=== PATIENT | female | born 1975 | race Caucasian/White ===

== ENCOUNTER → 2017-05-13 | Outpatient (CLI) | payer OTHER ==
[~2017-05-13] MED LIST: CEFD300C3 PO
--- NOTE | 2017-05-13 12:31 | Diagnostic Imaging Report ---
PATIENT HISTORY: COUGH, WHEEZING. TECHNIQUE: Two views of the chest. COMPARISON: None. FINDINGS: The lung volumes are normal. No focal consolidation is seen. No large pleural effusion or pneumothorax is seen. The cardiomediastinal silhouette is normal in size and contour. No acute osseous abnormality is seen. IMPRESSION: No acute pulmonary abnormality seen. Dictated by: Dictated on workstation # [id number]
== END ==
LOC: RAD 11:52
PROVIDERS: ATTEND Nurse Practitioner Family
DX: R05 Cough (principal)
CPT/HCPCS: 71046

== ENCOUNTER → 2020-07-25 | Outpatient (CLI) | payer OTHER ==
--- NOTE | 2020-07-25 13:27 | Diagnostic Imaging Report ---
INDICATION: ABNORMAL THYROID LAB TECHNIQUE: Grayscale sonographic images of the thyroid gland. CORRELATION STUDY: None FINDINGS: RIGHT LOBE: Enlarged at 5.5 x 1.6 x 2.2 cm. There is a rather sizable predominantly solid, iso to slightly hypoechoic mass. Minimal cystic change. There are multiple microcalcifications present. This measures approximately 3.8 x 1.9 x 1.5 cm, occupies a large portion of the right thyroid lobe. Additional smaller heterogeneous nodule superior pole measures 0.9 x 0.7 x 0.5 cm. LEFT LOBE: Mildly enlarged at 5.1 x 1.6 x 2.0 cm. There is a dominant predominantly solid iso to slightly hypoechoic mass in the left lobe. This measures 1.5 x 0.9 x 0.9 cm. May be a few punctate microcalcifications, as well. Several additional smaller nodules are present. Isthmus appears unremarkable. IMPRESSION: Enlarged thyroid gland with multiple nodules/masses. There are solitary dominant masses of both lobes right greater than left. The most concerning mass would be of the right lobe, TR5. Suspicious. Fine-needle aspiration would be recommended. Annual follow-up evaluation of the remaining nodules would also be recommended (Normal gland size: 4-5 x 2 x 2 cm) Dictated by: Dictated on workstation # [id number]
== END ==
LOC: RAD 10:39
PROVIDERS: ATTEND Family Medicine
DX: E04.2 Nontoxic multinodular goiter (principal)
CPT/HCPCS: 76536

== ENCOUNTER → 2020-08-01 | Outpatient (CLI) | payer OTHER ==
[~2020-08-01] VITALS: Ht 177.8 cm; Wt 120.5 kg
[~2020-08-01] MED LIST changes: +LIDOCAINE 1% INJ 20 ML 20 ML VIAL INJ ONE
--- NOTE | 2020-08-01 14:23 | Diagnostic Imaging Report ---
INDICATION: Right thyroid mass. Patient presents for ultrasound-guided fine-needle aspiration and biopsy. Patient brought to the procedure and placed on table in the supine position. Ultrasound imaging of the right neck was performed to evaluate appropriate entry site. Right neck was then prepped and draped in usual sterile fashion. Small amount of 1% lidocaine was utilized for local anesthesia. A total of 4 passes were made into the dominant solid mass of the right lobe of thyroid utilizing 25-gauge needles and fine-needle aspiration technique. A single pass was made with a Rotex needle and Rotex biopsy was performed. Needle was removed and hemostasis was obtained. Patient tolerated procedure well. IMPRESSION: Successful right lobe thyroid nodule fine-needle aspiration and biopsy utilizing ultrasound guidance. Dictated by: Dictated on workstation # [id number]
--- NOTE | 2020-08-01 14:32 | Diagnostic Imaging Report ---
INDICATION: Left lobe thyroid nodule. PROCEDURE: The patient presents for ultrasound guided biopsy. The patient was brought to the procedure room, placed on the table in the supine position. Ultrasound imaging of the left neck was performed to evaluate appropriate entry site. The left neck was then prepped and draped in the usual sterile fashion. Small amount of 1% lidocaine was utilized for local anesthesia. A total of 4 passes were made into the dominant solid nodule in the left lobe of the thyroid utilizing 25-gauge needles and fine-needle aspiration technique. A single pass was made with a Rotex needle and Rotex biopsy was performed. Needle was removed and hemostasis was obtained using manual compression. The patient tolerated the procedure well and left the department in stable condition. IMPRESSION: Successful left thyroid nodule fine-needle aspiration and Rotex biopsy, utilizing ultrasound guidance. Pathology results are currently pending. Dictated by: Dictated on workstation # [id number]
== END ==
LOC: RAD 09:03
PROVIDERS: ATTEND Family Medicine
DX: E04.1 Nontoxic single thyroid nodule (principal)
CPT/HCPCS: 10005; 10006